=== PATIENT | female | born 1995 | race Caucasian/White ===

== ENCOUNTER 2018-03-16 12:07 | Emergency (ER) | payer OTHER ==
[~2018-03-16] VITALS: Ht 165.1 cm; Wt 63.5 kg
[2018-03-16 12:21] VITALS: BP 128/78
--- NOTE | 2018-03-16 12:21 | NUR ---
Pt.was seen by Jim. Juan Luis
== END 2018-03-16 12:28 | disposition home or self-care (01) ==
LOC: ER 12:11
DX: S80.11XA Contusion of right lower leg, initial encounter (principal); V49.9XXA Car occupant (driver) (passenger) injured in unspecified traffic accident, initial encounter; Y93.89 Activity, other specified; Y92.89 Other specified places as the place of occurrence of the external cause; Y99.8 Other external cause status
CPT/HCPCS: A4663